=== PATIENT | female | born 1960 | race Caucasian/White ===

== ENCOUNTER 2023-10-09 09:08 | Day surgery (SDC) | payer MEDICARE, SELFPAY ==
[2023-10-04 17:01] VITALS: BMI 23.3
[2023-10-09] VITALS (8 sets, daily range): BP systolic 105–126; BP diastolic 66–95; PULSE 66–73; RESP 16–19; TEMP 36.1–36.5; O2SAT 94–100
[2023-10-09] MEDS: TETRACAINE 0.5% OPTH SOL 15ML OP ×3 (09:43)
[2023-10-09] MEDS: PHENYLEPHRINE 2.5% OPHTH SOLN 2ML 0.0500000000000000028 ML OP ×3 (09:44→09:45)
[2023-10-09] MEDS: CYCLOPENTOLATE 2% OPHTH SOLN 2ML BOTTLE OP ×3 (09:44)
[2023-10-09] MEDS: SODIUM CHLORIDE 0.9% 10ML FLUSH SYRINGE 10 ML IV (10:55)
[2023-10-09] MEDS: MIDAZOLAM 2MG/2ML VIAL 1 MG IV (10:55)
[2023-10-09] MEDS: LIDOCAINE 1% PF 2ML AMPULE 2 ML IJ (11:08)
[2023-10-09] MEDS: TIMOLOL 0.5% OPTH SOLN 5ML OP (11:10)
[2023-10-09] MEDS: TOBRAMYCIN/DEX OPTH SUSP 2.5ML OP (11:10)
== END 2023-10-09 11:20 | disposition home or self-care (01) ==
PROVIDERS: PCP Family Medicine; Visit Provider Ophthalmology
PROC: (CPT 66984; principal; 2023-10-09 11:00)
DX: H25.811 Combined forms of age-related cataract, right eye (principal)
CPT/HCPCS: 66984; V2632

== ENCOUNTER 2023-12-07 18:23 | Emergency (ER) | payer MEDICARE, SELFPAY ==
[2023-12-07 18:24] VITALS: BP 131/88; PULSE 120; RESP 20; TEMP 36.8; O2SAT 97; BMI 32.5
--- NOTE | 2023-12-07 18:39 | PC.NURSE ---
DR SELF AT BEDSIDE
--- NOTE | 2023-12-07 18:50 | CT_ITS ---
PROCEDURE INFORMATION: Exam: CTA Abdomen and Pelvis With Contrast Exam date and time: 12/07/2023 7:28 PM Age: 63 years old Clinical indication: Other: Gi bleed; Additional info: Large volume gib bright red, tachycardia TECHNIQUE: Imaging protocol: Computed tomographic angiography of the abdomen and pelvis with contrast. Exam focused on the arteries. 3D rendering (Not supervised by radiologist): MIP and/or 3D reconstructed images were created by the technologist. Radiation optimization: All CT scans at this facility use at least one of these dose optimization techniques: automated exposure control; mA and/or kV adjustment per patient size (includes targeted exams where dose is matched to clinical indication); or iterative reconstruction. Contrast material: ISOVUE 370; Contrast volume: 100 ml; Contrast route: INTRAVENOUS (IV); COMPARISON: No relevant prior studies available. FINDINGS: Lungs: Mild emphysema. Bibasilar atelectasis. Coronary arteries: Mild coronary artery calcification. Aorta: Moderate atherosclerotic disease. No aortic aneurysm. No aortic dissection. Celiac trunk and mesenteric arteries: No occlusion or significant stenosis. Renal arteries: No occlusion or significant stenosis. Right iliac arteries: Moderate atherosclerotic disease in the common iliac artery. No significant atherosclerotic disease in the internal or external iliac arteries. No occlusion or significant stenosis. Left iliac arteries: Moderate atherosclerotic disease in the common iliac artery. Mild atherosclerotic disease in the internal iliac artery. No significant atherosclerotic disease in the external iliac artery. No occlusion or significant stenosis. Liver: No mass. Gallbladder and bile ducts: Punctate gallstones in the gallbladder. No biliary ductal dilatation. The gallbladder is decompressed. Pancreas: Unremarkable. No mass. No ductal dilation. Spleen: Unremarkable. No splenomegaly. Adrenal glands: Unremarkable. No mass. Kidneys and ureters: Unremarkable. No solid mass. No hydronephrosis. Stomach and bowel: Sigmoid colon diverticulosis without diverticulitis. No dilated bowel loops. No evidence of active GI bleeding. Appendix: No evidence of appendicitis. Intraperitoneal space: Unremarkable. No free air. No significant fluid collection. Lymph nodes: Unremarkable. No enlarged lymph nodes. Urinary bladder: Unremarkable. No mass. Reproductive: Status post hysterectomy. No adnexal masses. Bones/joints: Mild lumbar spine dextroscoliosis. Severe L2-L3 and moderate L5-S1 degenerative disc disease. Soft tissues: Unremarkable. IMPRESSION: 1. No evidence of active GI bleeding. 2. Sigmoid colon diverticulosis without diverticulitis. 3. Cholelithiasis.
[2023-12-07 19:01] VITALS: BP 126/86; PULSE 118; RESP 19; O2SAT 96
--- NOTE | 2023-12-07 19:10 | ED_ITS ---
Discharge Plan Disposition Patient Disposition: Home, Self-Care Chief Complaint: GI Bleed Prescriptions Prescriptions: No Action famotidine 40 mg Tablet 40 mg PO DAILY omeprazole 40 mg Capsule,Delayed Release(Dr/Ec) 40 mg PO DAILY amitriptyline 10 mg Tablet 20 mg PO TIDP PRN (Reason: nerve pain) Referrals Follow up/Referrals: Mo Reynolds MD [Primary Care Provider] - See instructions Bill Pringle MD [Staff Physician] - See instructions Activity Restrictions/Add. Instructions Additional Instructions/Restrictions: Follow-up with Dr. Pringle regarding this visit to the emergency department and colonoscopy, and potential candidacy for bowel resection to prevent further possible diverticular bleeds. Your workup today did not demonstrate any acute source of bleeding and your hemoglobin was normal at 15.1. 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 Call your family doctor to establish care for this visit to the emergency department and schedule follow-up within 48 hours to ensure improvement. If you have any worsening of your condition or any other concerning signs or symptoms, return to the emergency department or your primary care doctor for further evaluation. Clinical Impressions Clinical Impression: BRBPR (bright red blood per rectum) Instructions Patient Instructions: DI for Gastrointestinal Bleeding Discharge ED Provider: Leon Echevarria General Adult HPI General Chief complaint: GI Bleed Stated complaint: Abdominal pain,blood in stool Time Seen by Provider: 12/07/23 18:25 Mode of Arrival: Family Vehicle Source of Information: Patient Limitations: No Limitations Description of Symptoms (Recalled from ER Triage Doc. by RN): Pt c/o generalized abd pain and bright red rectal bleeding that began this morning around 6am. States the pain last for 4 hrs and her stomach would get crampy and then after she passed blood and then pain lets up. Denies any fever, nausea, or vomiting. History of Present Illness HPI narrative: 63-year-old female with history of spastic colon, diverticulosis, polyps necessitating every 3 year colonoscopy, family history of inflammatory bowel disease presenting with bright red blood per rectum. Started this morning around 6 AM. She has had this in the past. She has a cramping feeling just before needing to go, has large volume bright red stools after that. No fevers or chills, nausea, vomiting, abdominal pain in the interim. She does have intermittent right and left flank pains, but these are really BMs. Related Data Home Medications Medication Instructions Recorded Confirmed amitriptyline 10 mg tablet 20 mg PO TIDP PRN nerve pain 10/04/23 10/04/23 famotidine 40 mg tablet 40 mg PO DAILY 10/04/23 10/09/23 omeprazole 40 mg capsule,delayed 40 mg PO DAILY 10/04/23 10/09/23 release Allergies Allergy/AdvReac Type Severity Reaction Status Date / Time acetaminophen Allergy Verified 10/09/23 09:36 aspirin Allergy Verified 10/09/23 09:36 gabapentin Allergy Verified 10/09/23 09:36 meloxicam Allergy Verified 10/09/23 09:36 morphine Allergy Verified 10/09/23 09:36 NSAIDS (Non-Steroidal Allergy Verified 10/09/23 09:36 Anti-Inflamma Penicillins Allergy Verified 10/09/23 09:36 pregabalin [From Lyrica] Allergy Verified 10/09/23 09:36 [facility] Disclaimer: The information contained in this section may have been updated after the patient was seen, as this information can be updated by other users. Medical History (Updated 12/07/23 @ 20:22 by Leon Echevarria MD) GERD (gastroesophageal reflux disease) Surgical History History of thumb surgery History of bilateral oophorectomy History of hysterectomy History of cataract surgery Family History Other Family history of coronary artery disease Family history of myocardial infarction Social History Smoking Status: Current every day smoker alcohol intake: never current occupational status: disabled Travel in the last 8 weeks: None ROS Obtained: Yes All systems reviewed & no additional complaints except as documented Physical Exam General General appearance: alert and in no apparent distress Head Head exam: atraumatic and normocephalic Eye Eye exam: Present normal appearance, PERRL and EOMI ENT ENT exam: Present mucous membranes moist Neck Neck exam: Present normal inspection, full ROM and trachea midline Respiratory Respiratory exam: Absent respiratory distress, wheezes, stridor, accessory muscle use or prolonged expiratory phase Cardiovascular Cardiovascular exam: Present normal rhythm Abdominal Exam Abdominal exam: Present soft; Absent distention, tenderness, guarding, rebound or rigidity Extremities Exam Extremities exam: Absent edema Neurological Exam Neurological exam: Present alert, oriented X3, CN II-XII intact and normal gait; Absent motor sensory deficit Skin Skin exam: Present warm and dry; Absent diaphoresis or erythema Medical Decision Making Medical Records Medical records reviewed: Yes I reviewed the patient's medical records. Zak Inquiry Pt receiving controlled substance: No Zak was queried for this patient: No Vital Signs: 12/07/23 18:24 12/07/23 19:01 Temperature 98.2 F Temperature Source Oral Pulse Rate 118 H Pulse Rate [Right] 120 H Respiratory Rate 20 19 Blood Pressure 126/86 Blood Pressure [Right Arm] 131/88 Blood Pressure Mean 94 Blood Pressure Mean [Right Arm] 102 Blood Pressure Source [Right Arm] Automatic Cuff 02 Sat by Pulse Oximetry 97 96 Oxygen Delivery Method Room Air Lab Data Lab Results 12/07/23 19:07: WBC 10.1, RBC 4.66, Hgb 15.1, Hct 46.5, MCV 99.8 H, MCH 32.3 H, MCHC 32.4, RDW 13.1, Plt Count 192, MPV 11.3 H, Neut % (Auto) 68.9, Lymph % (Auto) 23.6, Henry % (Auto) 5.5, Eos % (Auto) 1.1, Baso % (Auto) 0.8, Neut # (Auto) 7.0, Lymph # (Auto) 2.4, Henry # (Auto) 0.6, Eos # (Auto) 0.1, Baso # (Auto) 0.1, Sodium 139, Potassium 3.4 L, Chloride 107, Carbon Dioxide 26, Anion Gap 9.4, BUN 14, Creatinine 0.90, Estimated Creat Clear 79, Estimated GFR 63, Est GFR ( Amer) 77, Glucose 118 H, Lactate 1.3, Calcium 9.2, Total Bilirubin 0.5, AST 30, ALT 21, Alkaline Phosphatase 129 H, Total Protein 7.5, Albumin 4.1, Globulin 3.4 H, Albumin/Globulin Ratio 1.2, Lipase 89 12/07/23 19:07 12/07/23 19:07 Orders (Tests/Meds): ED MEDICATIONS Discontinued Medications Generic Name Dose Route Start Last Admin Trade Name Freq PRN Reason Stop Dose Admin Sodium Chloride 1,000 mls @ 999 mls/hr 12/07/23 18:50 12/07/23 19:43 Sod Chlor 0.9% 1000ml Bag IV 12/07/23 19:50 999 mls/hr .Q1H1M ONE Administration Iopamidol 100 ml 12/07/23 19:31 12/07/23 19:32 Iopamidol-370 (76%);100ml Bottle IV 12/07/23 19:32 100 ml ONCE ONE Administration Sodium Chloride 10 ml 12/07/23 19:31 12/07/23 19:32 Sodium Chloride 0.9% 10ml Syr (Rad Only) IV 12/07/23 19:32 10 ml ONCE ONE Administration Sodium Chloride 50 ml 12/07/23 19:31 12/07/23 19:32 0.9 % Sodium Chloride 50 Ml Vial IV 12/07/23 19:32 50 ml ONCE ONE Administration ORDERS Category Date Time Status Type and Screen Stat BBK 12/07/23 19:[address] angio abdomen pelvis Stat Cat Scan 12/07/23 18:50 Completed Complete Blood Count Auto Diff Stat Lab 12/07/23 19:07 Completed Comprehensive Metabolic Panel Stat Lab 12/07/23 19:07 Completed Lactic Acid Stat Lab 12/07/23 19:07 Completed Lipase Stat Lab 12/07/23 19:07 Completed Urinalysis and Microscopic Stat Lab 12/07/23 18:51 Ordered Medical Decision Narrative: 63-year-old female with history of spastic colon, diverticulosis, polyps necessitating every 3 year colonoscopy, family history of inflammatory bowel disease presenting with bright red blood per rectum. Started this morning around 6 AM. She has had this in the past. She has a cramping feeling just before needing to go, has large volume bright red stools after that. No fevers or chills, nausea, vomiting, abdominal pain in the interim. She does have intermittent right and left flank pains, but these are really BMs. History obtained with patient. On arrival, hemodynamically stable, afebrile, normotensive, mildly tachycardic 110 bpm. Abdomen soft, nontender, nondistended. No flank tenderness on my exam. Normotensive. Differential includes diverticular bleed, aortic pathology, AVM, inflammatory bowel disease, colitis, PUD, gastritis, enteritis, gastroenteritis, pancreatitis, SBO, colitis, diverticulitis, nephrolithiasis, UTI, , cholecystitis, choledocholithiasis, appendicitis, hepatitis, torsion, aortic pathology, mesenteric ischemia among others. Workup interpreted and significant for hemoglobin 15.1, no leukocytosis. Chemistry nonactionable. LFTs normal, lipase negative. Independent interpretation of CTA of the abdomen pelvis demonstrates no aortic pathology, no active GI bleed, no blush, no obvious cause. Patient does have diverticulosis without diverticulitis, this could be causing source of patient's bleed. On reevaluation, patient resting comfortably in bed, heart rate 90-100. Given patient presentation, workup, history, this most likely represents diverticular bleed self resolved, not active. Because patient at baseline without signs or symptoms of clinical decompensation, deemed appropriate for discharge. Results were relayed to patient who voiced understanding and were agreeable to outpatient management and follow up. At the time of discharge the patient was hemodynamically stable, tolerating PO, and mobilizing appropriately. Critical Care Critical Care Time Critical Care Time: No
[2023-12-07 19:13] LABS: Basophils # 0.1 K/mm3 (0-0.2); Basophils % 0.8 % (0.1-2.0); Eosinophils # 0.1 K/mm3 (0.0-0.4); Eosinophils % 1.1 % (0.1-12.0); Hematocrit 46.5 % (37.0-47.0); Hemoglobin 15.1 g/dL (12.2-16.2); Lymphocytes # 2.4 K/mm3 (0.7-4.5); Lymphocytes % 23.6 % (10-50); Mean Corpuscular HGB Conc 32.4 g/dL (31.8-35.4); Mean Corpuscular Hemoglobin 32.3 pg (27.0-31.2); Mean Corpuscular Volume 99.8 fl (81-99); Mean Platelet Volume 11.3 fl (7.4-10.4); Monocytes # 0.6 K/mm3 (0.1-1.0); Monocytes % 5.5 % (1.7-9.3); Neutrophils % 68.9 % (37.0-80.0); Platelet Count 192 K/mm3 (142-424); Red Blood Count 4.66 M/mm3 (4.20-5.40); Red Cell Distribution Width 13.1 % (11.5-17.5); White Blood Count 10.1 K/mm3 (4.8-10.8)
[2023-12-07 19:16] LABS: Chloride 107 mmol/L (98-107); Potassium 3.4 mmoL/L (3.5-5.1); Sodium 139 mmol/L (136-145)
[2023-12-07 19:18] LABS: Alanine Aminotransferase 21 U/L (12-78); Alkaline Phosphatase 129 U/L (38-126); Anion Gap 9.4 mEq/L (5-15); Aspartate Amino Transferase 30 U/L (14-36); Bilirubin,Total 0.5 mg/dl (0.2-1.3); Blood Urea Nitrogen 14 mg/dl (7-17); Carbon Dioxide 26 mmol/L (22.0-30.0); Creatinine Clearance Estimated 79 mL/min (50-200); Estimated Glomerular Filt Rate 63 ml/min (>60); GFR (African American) 77 ML/MIN (>60); Lipase 89 U/L (23-300)
[2023-12-07 19:19] LABS: Albumin Level 4.1 g/dl (3.5-5.0); Albumin/Globulin Ratio 1.2 (1.1-1.8); Calcium 9.2 mg/dl (8.4-10.2); Globulin 3.4 g/dL (1.3-3.2); Glucose 118 mg/dl (74-100); Lactic Acid 1.3 mmol/L (0.7-2.1); Total Protein,Serum 7.5 g/dl (6.3-8.2)
[2023-12-07] MEDS: 0.9 % SODIUM CHLORIDE 50 ML VIAL IV (19:32)
[2023-12-07] MEDS: SODIUM CHLORIDE 0.9% 10ML SYR (RAD ONLY) 10 ML IV (19:32)
[2023-12-07] MEDS: IOPAMIDOL-370 (76%);100ML BOTTLE 100 ML IV (19:32)
[2023-12-07] MEDS: 0.9 % SODIUM CHLORIDE 1000ML 1,000 ML 999 ML IV (19:43)
[2023-12-07 20:39] VITALS: BP 137/93; PULSE 77; RESP 19; TEMP 36.8; O2SAT 99
== END 2023-12-07 20:41 | disposition home or self-care (01) ==
PROVIDERS: Emergency Provider Emergency Medicine; PCP Family Medicine
DX: R10.9 Unspecified abdominal pain (principal); K62.5 Hemorrhage of anus and rectum; K21.9 Gastro-esophageal reflux disease without esophagitis; F17.210 Nicotine dependence, cigarettes, uncomplicated
CPT/HCPCS: 74174; 80053; 83605; 83690; 85025; 86850; 96360; 96374; 96375; 99284; 99285; Q9967